=== PATIENT | male | born 1960 | race Caucasian/White ===

== ENCOUNTER → 2017-09-28 11:17 | Outpatient (CLI) | payer MEDICARE, SELFPAY ==
[2017-09-28 12:05] VITALS: PULSE 85; PULSE 87
== END ==
PROVIDERS: Family Provider Family Medicine; PCP Family Medicine; Visit Provider Family Medicine
DX: J44.9 Chronic obstructive pulmonary disease, unspecified (principal)
CPT/HCPCS: 94060; 94640

== ENCOUNTER → 2017-12-03 10:21 | Outpatient (CLI) | payer MEDICARE, SELFPAY ==
--- NOTE | 2017-12-03 10:28 | XR_ITS ---
XR knee RT 3V HISTORY: ITS.REASON: POSTERIOR RT KNEE PAIN ORDERING PHYSICIAN: Catalino Forde MD PATIENT AGE: 57 years COMPARISON: None FINDINGS: No fracture or dislocation. There is increased density in the suprapatellar region suggesting knee joint effusion. There is a small area of subarticular lucency involving the distal aspect of the medial femoral condyle at the knee joint surrounded by small area of sclerosis. The lucency measures approximately 5 mm. This is consistent with an area of osteochondrosis/osteochondral defect. The joint spaces are well-preserved. IMPRESSION: 1. Osteochondrosis dissecans with small osteochondral defect of the medial femoral condyle. 2. Small knee joint effusion
== END ==
PROVIDERS: PCP Family Medicine; Visit Provider Family Medicine
DX: M25.561 Pain in right knee (principal)
CPT/HCPCS: 73562

== ENCOUNTER 2019-04-21 14:00 | Outpatient (RCR) | payer MEDICARE, SELFPAY | END 2019-04-21 14:05 | disposition home or self-care (01) | LOC: PT 14:00 | PROVIDERS: Visit Provider Physician Assistant Surgical | DX: M25.561 Pain in right knee (principal); Z96.651 Presence of right artificial knee joint | CPT/HCPCS: 97010; 97014; 97110; 97140; 97163; G0283 ==

== ENCOUNTER 2020-11-28 02:02 | Emergency (ER) | payer MEDICARE, SELFPAY ==
[2020-11-28] VITALS (7 sets, daily range): BP systolic 132–159; BP diastolic 70–89; PULSE 81–86; RESP 16–18; TEMP 36.8; O2SAT 94–96; BMI 39.9
--- NOTE | 2020-11-28 02:03 | XR_ITS ---
PROCEDURE INFORMATION: Exam: XR Left Knee Exam date and time: 11/28/2020 2:03 AM Age: 60 years old Clinical indication: Injury or trauma; Fall; Blunt trauma; Knee; Left TECHNIQUE: Imaging protocol: XR Left knee. Views: 3 views. COMPARISON: No relevant prior studies available. FINDINGS: Bones/joints: No acute fracture or malalignment. There is a small nondisplaced osteochondral defect in the medial distal femoral condyle. Knee joint space is otherwise unremarkable. Soft tissues: Normal. IMPRESSION: 1. No fracture or malalignment. 2. Small osteochondral defect in the medial distal femoral condyle.
--- NOTE | 2020-11-28 02:03 | XR_ITS ---
PROCEDURE INFORMATION: Exam: XR Left Tibia and Fibula Exam date and time: 11/28/2020 2:03 AM Age: 60 years old Clinical indication: Injury or trauma; Fall; Blunt trauma; Lower leg; Left TECHNIQUE: Imaging protocol: XR Left tibia and fibula. Views: 2 views. COMPARISON: No relevant prior studies available. FINDINGS: Bones/joints: There is a nondisplaced osteochondral defect in the medial distal femoral condyle. Knee joint space is unremarkable. Mildly laterally displaced fracture of the distal fibula. Mild widening of the medial ankle joint space. No displaced tibial fracture. Soft tissues: Soft tissue edema in the foot and ankle. IMPRESSION: Mildly displaced distal fibular fracture with probable medial ankle ligament injury.
--- NOTE | 2020-11-28 02:03 | XR_ITS ---
PROCEDURE INFORMATION: Exam: XR Pelvis Exam date and time: 11/28/2020 2:03 AM Age: 60 years old Clinical indication: Injury or trauma; Fall; Blunt trauma (contusions or hematomas); Bilateral; Pelvic region TECHNIQUE: Imaging protocol: XR pelvis. Views: 1 or 2 view. 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 Normal alignment. No displaced fracture. Degenerative changes in the lumbar spine and prior posterior fusion at L3-L4. Soft tissues: Unremarkable. IMPRESSION: No fracture or malalignment.
--- NOTE | 2020-11-28 02:03 | XR_ITS ---
PROCEDURE INFORMATION: Exam: XR Left Foot Exam date and time: 11/28/2020 2:03 AM Age: 60 years old Clinical indication: Injury or trauma; Fall; Blunt trauma; Foot; Left TECHNIQUE: Imaging protocol: XR Left foot. Views: 3 or more views. COMPARISON: CR XR TIBIA FIBULA LT 2V 11/28/2020 2:29 AM FINDINGS: Bones/joints: Mildly displaced fracture of the distal fibula. There is a nondisplaced fracture of the plantar surface of the base of a metatarsal, only visualized on the lateral view. Soft tissues: Soft tissue swelling at the ankle. IMPRESSION: 1. Mildly displaced distal fibular fracture. 2. Nondisplaced fracture of the plantar base of 1 metatarsal, only visualized on the lateral view. It is unclear which metatarsal base is involved.
--- NOTE | 2020-11-28 02:03 | XR_ITS ---
PROCEDURE INFORMATION: Exam: XR Chest Exam date and time: 11/28/2020 2:03 AM Age: 60 years old Clinical indication: Injury or trauma; Fall; Blunt trauma (contusions or hematomas) TECHNIQUE: Imaging protocol: XR of the chest. Views: 1 view. COMPARISON: CR CXR2V XR chest 2V 08/28/2017 9:09 PM FINDINGS: Lungs: Clear. No consolidation. Pleural spaces: No pleural effusion. No pneumothorax. Heart/Mediastinum: Unremarkable. No cardiomegaly. Bones/joints: Unremarkable. IMPRESSION: No acute findings.
--- NOTE | 2020-11-28 02:04 | XR_ITS ---
PROCEDURE INFORMATION: Exam: XR Left Ankle Exam date and time: 11/28/2020 2:04 AM Age: 60 years old Clinical indication: Injury or trauma; Fall; Blunt trauma; Ankle; Left TECHNIQUE: Imaging protocol: XR Left ankle. Views: 3 or more views. COMPARISON: CR XR KNEE LT 3V 11/28/2020 2:27 AM FINDINGS: Bones/joints: There is an oblique fracture of the distal fibula extending just below the ankle mortise. The distal fibular fragment is displaced 4 mm laterally with widening of the medial ankle mortise. Distal tibia and talar dome are intact. Nondisplaced fracture of the base of the 5th metatarsal. Soft tissues: Soft tissue swelling in the ankle. IMPRESSION: 1. Oblique fracture of the distal fibula with widening of the medial ankle mortise suggesting medial ankle ligament injury. 2. 5th metatarsal base fracture.
--- NOTE | 2020-11-28 02:47 | HMH.EDLOEX ---
ED Disposition Clinical Impression: Ankle fracture Qualifiers: Encounter type: initial encounter Fracture type: closed Laterality: left Qualified Code(s): S82.892A - Other fracture of left lower leg, initial encounter for closed fracture Disposition: Home, Self-Care Condition on Discharge: Good Instructions: DI for Ankle Fracture Additional Instructions: will ask pt to call ortho this am and limited wt bearing Referrals: Provider,Nuris, [Referring] - Hernandez Reno MD [Staff Physician] - - Critical Care Critical Care Time: No Attestation: On 11/28/20, the high probability of a clinically significant, sudden or life threatening deterioration of the following system(s) required my full and direct attention, intervention and personal management. The time I documented below is in addition to time spent performing reported procedures but includes the following listed in this critical care notation. Medical Decision Making - Medical Records Medical records reviewed: Yes: I reviewed the patient's medical records. - Shoaib Inquiry Pt receiving controlled substance: No Vital Signs: 11/28/20 01:53 11/28/20 03:01 11/28/20 03:30 Temperature 98.2 F Temperature Source Oral Pulse Rate 83 84 Pulse Rate [Right] 86 Respiratory Rate 16 Blood Pressure 138/71 141/76 H Blood Pressure [Right Arm] 132/75 Blood Pressure Mean [Right Arm] 94 02 Sat by Pulse Oximetry 96 95 95 11/28/20 04:00 11/28/20 04:30 11/28/20 05:01 Temperature Temperature Source Pulse Rate 85 83 82 Pulse Rate [Right] Respiratory Rate Blood Pressure 138/70 159/89 H 150/87 H Blood Pressure [Right Arm] Blood Pressure Mean [Right Arm] 02 Sat by Pulse Oximetry 94 L 95 96 - Lab Data Lab results reviewed: Yes: I reviewed the patient's lab results. - Radiology Data #1 Image(s): Chest, Pelvis, Knee, Tib/Fib, Ankle, Foot/Toes Image Reviewed: Yes I have reviewed radiologist's interpretation Preliminary Findings: Abnormal (fx seen) - Physician Consults Physician Consulted: shadia Reason -: Pt condition Medical Decision Narrative: will place in splint and refer to dr reno Lower Extremity Injury HPI - General Chief Complaint: Extremity Injury, Lower Stated Complaint: left ankle injury Time Seen by Provider: 11/28/20 02:15 Mode of Arrival: EMS Source of Information: Patient, EMS, Medical Record Limitations: No Limitations Description of Symptoms (Recalled from ER Triage Doc. by RN): pt states stood up and fell landing on lt ankle foot. pt denies LOC pt c/o lt ankle , foot pain - History of Present Illness HPI Narrative: pt with acute injury to lt ankle/foot sec to fall complaint: ankle injury Onset (ago): hour(s) Injury: Left: ankle Type of Injury: eversion Place: home Severity: moderate Context: fall Associated symptoms: unable to bear weight Other symptoms: none - Related Data Home Medications Medication Instructions Recorded Confirmed ALPRAZolam [Xanax 1mg tab] 1 mg PO TID 08/28/17 08/28/17 Aspirin [Aspir 81] 81 mg PO DAILY 08/28/17 08/28/17 Cinnamon Bark [Cinnamon] 1,000 mg PO DAILY 08/28/17 08/28/17 Dapagliflozin Propanediol [Farxiga] 10 mg PO DAILY 08/28/17 08/28/17 Gemfibrozil 600 mg PO BID 08/28/17 08/28/17 Insulin Glargine,Hum.rec.anlog 50 units SQ TID 08/28/17 08/28/17 [Toujeo Solostar] Insulin Lispro [Humalog] 100 unit SQ DAILY 08/28/17 08/28/17 Methadone HCl [Methadone 10mg 10 mg PO QID 08/28/17 08/28/17 Tablet] Pregabalin [Lyrica 150mg Cap] 150 mg PO QID 08/28/17 08/28/17 atenoloL [Atenolol 50mg Tab] 50 mg PO DAILY 08/28/17 08/28/17 tadalafiL [Cialis] 5 mg PO DAILY PRN 08/28/17 08/28/17 Previous Rx's Medication Instructions Recorded Azithromycin [Zithromax 250mg 250 mg PO DIRECTED #6 tab 08/28/17 tab] Benzonatate [Tessalon Perle 100mg 100 mg PO TID #30 cap 08/28/17 Cap] Allergies Allergy/AdvReac Type Severity Reaction Status D
== END 2020-11-28 07:14 | disposition home or self-care (01) ==
PROVIDERS: Emergency Provider Emergency Medicine; PCP Family Medicine
DX: S82.452A Displaced comminuted fracture of shaft of left fibula, initial encounter for closed fracture (principal); S92.355A Nondisplaced fracture of fifth metatarsal bone, left foot, initial encounter for closed fracture; W01.0XXA Fall on same level from slipping, tripping and stumbling without subsequent striking against object, initial encounter; Y92.019 Unspecified place in single-family (private) house as the place of occurrence of the external cause; E11.9 Type 2 diabetes mellitus without complications
CPT/HCPCS: 29515; 71045; 72170; 73562; 73590; 73610; 73630; 99283

== ENCOUNTER → 2020-12-03 14:06 | Outpatient (CLI) | payer MEDICARE, SELFPAY ==
--- NOTE | 2020-12-03 14:10 | XR_ITS ---
PROCEDURE: XR ANKLE LT MIN 3V CLINICAL INDICATION: LT ankle fracture COMPARISON: CR XR ANKLE LT MIN 3V from 11/28/2020 FINDINGS: There is a cast in place stabilizing a nondisplaced distal fibular fracture with good alignment. Ankle mortise is preserved. Also appears to be a nondisplaced posterior distal tibial fracture. IMPRESSION: Good alignment distal fibular and posterior distal tibial fracture Dictated by: Brennon Soria MD 12/03/2020 15:41 Brennon Soria MD in [place] 12/03/2020 15:41
== END ==
PROVIDERS: PCP Family Medicine; Visit Provider Orthopaedic Surgery
DX: S82.892A Other fracture of left lower leg, initial encounter for closed fracture (principal)
CPT/HCPCS: 73610

== ENCOUNTER → 2020-12-13 14:39 | Outpatient (CLI) | payer MEDICARE, SELFPAY ==
--- NOTE | 2020-12-13 14:44 | XR_ITS ---
PROCEDURE: XR ANKLE LT MIN 3V CLINICAL INDICATION: LT ankle fracture COMPARISON: CR XR ANKLE LT MIN 3V from 11/28/2020 CR XR ANKLE LT MIN 3V from 12/03/2020 FINDINGS: There is an overlying cast. There is an oblique distal fibular fracture exiting medially at the level of the ankle joint. There is 4 mm lateral displacement of the distal fracture fragment. The ankle mortise does not appear widened. There is good alignment The joint spaces are well-preserved. No significant degenerative/arthritic changes. No erosive changes evident. Other findings:None. IMPRESSION: Minimally displaced distal fibular fracture with good alignment Dictated by: Brennon Soria MD 12/13/2020 15:02 Brennon Soria MD in [place] 12/13/2020 15:02
== END ==
PROVIDERS: PCP Family Medicine; Visit Provider Orthopaedic Surgery
DX: S82.892A Other fracture of left lower leg, initial encounter for closed fracture (principal)
CPT/HCPCS: 73610

== ENCOUNTER → 2020-12-31 09:46 | Outpatient (CLI) | payer MEDICARE, SELFPAY ==
--- NOTE | 2020-12-31 09:46 | XR_ITS ---
PROCEDURE: XR ANKLE LT MIN 3V CLINICAL INDICATION: left ankle fx; XR OUT OF CAST COMPARISON: CR XR ANKLE LT MIN 3V from 11/28/2020 CR XR ANKLE LT MIN 3V from 12/03/2020 CR XR ANKLE LT MIN 3V from 12/13/2020 FINDINGS: Cast has been removed. There is good alignment of the fracture fragments of the oblique fracture of the distal fibula with no significant displacement. Calcification noted anterior to the lower aspect of the fracture line suggesting callus formation. The ankle mortise appears slightly widened with mild prominence the distal tibiofibular space raising the question of syndesmosis injury. Other findings:None. IMPRESSION: Mild widening of the ankle mortise raising the question of syndesmotic injury. The oblique distal fibular fracture is in good alignment without displacement Dictated by: Brennon Soria MD 12/31/2020 14:20 Brennon Soria MD in [place] 12/31/2020 14:20
--- NOTE | 2020-12-31 09:49 | XR_ITS ---
PROCEDURE: XR DEXA AXIAL SKELETON CLINICAL HISTORY: H/O HEALED FRAGILITY FRACTURE COMPARISON: No exams were available for comparison FINDINGS: The right hip BMD is 0.900 with a T-score of -0.2. The left hip BMD is 0.95 with a T-score of -0.2. The radius 1/3 is 0.710 with a T-score of -2.0. IMPRESSION: This patient is considered osteopenic according to the World Health Organization criteria. Bone density is between 10 and 25 percent below young normal. Fracture risk is moderate. Treatment is advised. Based on these results a follow-up exam is recommended in 2 year. Dictated by: Brennon Soria MD 12/31/2020 14:17 Brennon Soria MD in [place] 12/31/2020 14:17
== END ==
PROVIDERS: PCP Family Medicine; Visit Provider Family Medicine
DX: S82.65XD Nondisplaced fracture of lateral malleolus of left fibula, subsequent encounter for closed fracture with routine healing (principal); M85.89 Other specified disorders of bone density and structure, multiple sites
CPT/HCPCS: 73610; 77080

== ENCOUNTER 2020-12-31 11:33 | Outpatient (RCR) | payer MEDICARE, SELFPAY | END 2020-12-31 12:58 | disposition home or self-care (01) | LOC: PT 11:33 | PROVIDERS: Visit Provider Orthopaedic Surgery | DX: S82.65XD Nondisplaced fracture of lateral malleolus of left fibula, subsequent encounter for closed fracture with routine healing (principal) | CPT/HCPCS: 97760 ==

== ENCOUNTER → 2021-01-22 18:07 | Outpatient (CLI) | payer MEDICARE, SELFPAY ==
--- NOTE | 2021-01-22 18:14 | XR_ITS ---
PROCEDURE INFORMATION: Exam: XR Left Ankle Exam date and time: 01/22/2021 6:14 PM Age: 60 years old Clinical indication: Screening exam; Follow up to left ankle fracture. Patient is wearing an orthopedic boot. Patient states he is not a candidate for surgery due to diabetic complications. TECHNIQUE: Imaging protocol: XR Left ankle. Views: 3 or more views. COMPARISON: CR XR ANKLE LT MIN 3V 12/31/2020 10:41 AM FINDINGS: Bones/joints: Acute, mildly displaced oblique fracture of the distal left fibula, similar appearance to comparison study. Minimal widening of the medial aspect of the tibiotalar joint, raising the possibility of ligamentous injury. Soft tissues: Mild, diffuse ankle soft tissue swelling. IMPRESSION: 1. Mild, diffuse ankle soft tissue swelling. 2. Acute, mildly displaced oblique fracture of the distal left fibula, similar appearance to comparison study. 3. Minimal widening of the medial aspect of the tibiotalar joint, raising the possibility of ligamentous injury.
== END ==
PROVIDERS: PCP Family Medicine; Visit Provider Orthopaedic Surgery
DX: S82.65XD Nondisplaced fracture of lateral malleolus of left fibula, subsequent encounter for closed fracture with routine healing
CPT/HCPCS: 73610

== ENCOUNTER → 2021-02-11 09:45 | Outpatient (CLI) | payer MEDICARE, SELFPAY ==
--- NOTE | 2021-02-11 09:48 | XR_ITS ---
PROCEDURE: XR ANKLE LT MIN 3V CLINICAL INDICATION: LT ankle fracture followup COMPARISON: CR XR ANKLE LT MIN 3V from 01/22/2021 FINDINGS: When compared to the previous study 01/22/2021 there is minimal smudging of the fracture line suggesting early healing. The ankle mortise appears normal. Stable mild soft tissue swelling both medially and laterally. IMPRESSION: Early healing spiral oblique fracture distal fibula Dictated by: Dr. Collin Henry MD 02/11/2021 11:02 Dr. Collin Henry MD in [place] 02/11/2021 11:02
== END ==
PROVIDERS: PCP Family Medicine; Visit Provider Orthopaedic Surgery
DX: S82.892A Other fracture of left lower leg, initial encounter for closed fracture (principal)
CPT/HCPCS: 73610

== ENCOUNTER 2021-03-04 15:00 | Outpatient (RCR) | payer MEDICARE, SELFPAY ==
--- NOTE | 2021-01-27 16:51 | HMH.PTOPEV ---
PT Outpatient Evaluation Rehab PT Outpatient Evaluation Start: 01/27/21 14:17 Freq: Status: Active Protocol: Document 01/27/21 14:17 ASHELYDENAE (Rec: 01/27/21 16:26 KEENANSAVANNAH [id number]) Electronically Signed By Bill Hester PT 01/27/21 14:17 Outpatient Therapy Subjective History Subjective History This is the inital evaluation for Timothy Naima ZHU Walker. Pt is a 60 y/o male referred for a L distal fibular closed fracture. Pt reports that he went to use the bathroom one night when he slipped and fell on his L foot. Pt reports he has significant nueropathy so his balance is not great. Pt reports he heard a loud snap and immediatly felt pain and swelling after. Pt is being treated non-operatively in a short leg cast. Pt was in a hard cast for 4 weeks and then transitioned into a CAMboot the past 4 weeks. Pt states he has used the boot for walking but takes it off when seated. He reports pain on the inside of foot now from boot. Pt uses a SP cane intermitently when he needs it for walking. - note done by Lindsay George, SPT Chief Complaint Pain,Spasms,Stiff,Weakness Symptom Type Ache,Sharp,Stabbing Symptoms Relieved By Rest/Positioning,Brace/Support Symptoms Aggravated By Standing,Physical Activity, Walking Prior Functional Limitations None Current Functional Limitations Housework,Driving,Sleeping, Standing,Recreation Activity, Walking,Balance Symptom Description Intermittent Level of pain today (0-10) 1 Pain scale - at its best (0-10) 0 Pain scale - at its worst (0-10) 5 Ankle/Foot Eval Gait Observation General Gait Pattern Observation Antalgic Gait,Wide Based Gait Assistive Device Ambulation Assistive Device Straight Cane Palpation Tenderness left Ankle/Foot Palpation Findings Tenderness Ankle/Foot Palpation Overall Comment L fibular mal, medial subdeltoid lig Deltoid ligament TTP negative ROM Ankle/Foot Dorsiflexion w/Knee Extended 1 Active Range Motion (degrees)
== END 2021-03-04 15:05 | disposition home or self-care (01) ==
LOC: PT 15:00
PROVIDERS: PCP Family Medicine; Visit Provider Orthopaedic Surgery
DX: S82.65XD Nondisplaced fracture of lateral malleolus of left fibula, subsequent encounter for closed fracture with routine healing (principal)
CPT/HCPCS: 97010; 97110; 97163

== ENCOUNTER 2021-11-30 11:10 | Emergency (ER) | payer MEDICARE, SELFPAY ==
[2021-11-30 11:39] VITALS: BP 150/64; PULSE 74; RESP 16; TEMP 36.8; O2SAT 97; BMI 39.9
--- NOTE | 2021-11-30 11:45 | HMH.EDUTC ---
[facility] [place] Clinical Impression: Cerumen impaction Qualifiers: Laterality: right Qualified Code(s): H61.21 - Impacted cerumen, right ear Disposition: Home, Self-Care Condition on Discharge: Good Instructions: Cerumen Impaction Additional Instructions: Follow up with ENT for further examination and treatment for stopped up ear and Wax impaction\ Return if needed Straight to ER if any life threatening symptoms Referrals: Catalino Forde MD [Primary Care Provider] - As needed William Ontiveros MD [Physician] - Solitario Gallo MD [Physician] - Time of Disposition: 12:20 Medical Decision Making - Shoaib Inquiry Pt receiving controlled substance: No Shoaib was queried for this patient: No Vital Signs: 11/30/21 11:39 Temperature 98.2 F Temperature Source Oral Pulse Rate [Left] 74 Respiratory Rate 16 Blood Pressure [Right Arm] 150/64 H Blood Pressure Mean [Right Arm] 92 02 Sat by Pulse Oximetry 97 [facility] [place] - General Stated complaint: ear pain Time Seen by Provider: 11/30/21 11:45 Mode of Arrival: Ambulatory Source of Information: Patient Limitations: No Limitations Description of Symptoms (Recalled from Triage Doc. by RN): patient comes in with complaints of ringing in right ear for 5 days HEENT Symptoms (Recalled from RN notes): Yes Resp Symptoms (Recalled from RN notes): No Skin Symptoms (Recalled from RN notes): No MS Symptoms (Recalled from RN notes): No Functional Status (Recalled from RN notes): n/a - History of Present Illness Provider Complaint: Patient states that he has been feeling like his right ear stopped up States that he has used ear candles the last couple of days to try to clean out his ear States that he always has ringing in ears but it is worse when he has wax build up Denies pain - Related Data Home Medications Medication Instructions Recorded Confirmed ALPRAZolam [Xanax 1mg tab] 1 mg PO TID 08/28/17 02/11/21 Aspirin [Aspir 81] 81 mg PO DAILY 08/28/17 02/11/21 Cinnamon Bark [Cinnamon] 1,000 mg PO DAILY 08/28/17 02/11/21 Dapagliflozin Propanediol [Farxiga] 10 mg PO DAILY 08/28/17 02/11/21 Gemfibrozil 600 mg PO BID 08/28/17 02/11/21 Insulin Glargine,Hum.rec.anlog 50 units SQ TID 08/28/17 02/11/21 [Tiffanie Perry] Methadone HCl [Methadone 10mg 10 mg PO QID 08/28/17 02/11/21 Tablet] Pregabalin [Lyrica 150mg Cap] 150 mg PO QID 08/28/17 02/11/21 atenoloL [Atenolol 50mg Tab] 50 mg PO DAILY 08/28/17 02/11/21 insulin glargine U-300 conc 300 146 unit SQ ml 11/29/20 02/11/21 unit/mL (3 mL) subcutaneous pen Allergies Allergy/AdvReac Type Severity Reaction Status Date / Time erythromycin base Allergy Verified 11/30/21 11:42 naproxen Allergy Verified 11/30/21 11:42 sitagliptin [From Januvia] Allergy Verified 11/30/21 11:42 - Worker's Comp Is this a Worker's Comp case?: No [facility] History - Hepatitis A Screen Attestation statement:: This patient has been screened for Hepatitis A risk factors. I have reviewed the patient's past medical history: Yes Medical History: Reports:: Cancer, Diabetes Mellitus Type 2 Denies:: Diabetes Mellitus Type 1, MRSA Laterality Cases: Bilateral: Tonsillectomy Other Surgeries: Yes: Cholecystectomy, Hernia Repair Amputation: No Comment: right knee replacement. 5 back surgeries. catarac. tumor removed right breast - Social History Smoking Status: Current every day smoker # Packs/Day (cigarettes): 1 Alcohol Intake: never Occupational Status: disabled Family Hx:: No significant family history ROS Obtained: Yes All systems reviewed & no additional complaints, Yes Systems reviewed as appropriate & no additional complaints - Constitutional Constitutional: Reports system reviewed and no additional complaints, except as docu, Denies body ache, Denies chills, Denies fever(s) - ENT Ears, Nose, Mouth, and Throat: Reports system reviewed and no additional complaints, except as docu, Denies otalgia, Reports other (rep
[2021-11-30 12:26] VITALS: BP 150/64; PULSE 74; RESP 16; TEMP 36.8
== END 2021-11-30 12:27 | disposition home or self-care (01) ==
PROVIDERS: Emergency Provider Nurse Practitioner; PCP Family Medicine
DX: H61.21 Impacted cerumen, right ear (principal)
CPT/HCPCS: 99212; G0463

== ENCOUNTER 2024-04-20 12:26 | Emergency (ER) | payer MEDICARE, SELFPAY ==
[2024-04-20 12:29] VITALS: BP 148/93; PULSE 82; RESP 20; TEMP 36.8; O2SAT 95; BMI 34.9
[2024-04-20 12:50] VITALS: BP 148/93; PULSE 82; O2SAT 94
--- NOTE | 2024-04-20 13:07 | ED_ITS ---
<Statement entered by Dariel Griggs MD - 04/21/24 15:50> I was consulted by the JJ, and we discussed the complexity of the problems being addressed. I approved the treatment and management plan for this patient's care in the emergency department, thus performing a substantive portion of the medical decision making. Dariel Griggs MD, JOE, FACEP Discharge Plan Disposition Patient Disposition: Home, Self-Care Prescriptions Prescriptions: New amoxicillin-pot clavulanate 875-125 mg tablet 1 tab PO BID Qty: 20 0RF pjvcvuoj-nwnojeizl-VS 3.5-10,000-1 mg/mL-unit/mL-% drops,suspension 4 drp otic (ear) Q8H 5 Days Qty: 10 0RF mupirocin 2 % ointment 1 applic topical BID Qty: 15 0RF No Action Toujeo Max U-300 SoloStar 300 unit/mL (3 mL) insulin pen 146 unit SQ ofloxacin 0.3 % drops 1 drp OP BID atorvastatin 10 mg tablet 10 mg PO DAILY clotrimazole-betamethasone 1-0.05 % cream 1 applic TP BID Qty: 15 1RF ofloxacin 0.3 % drops 4 drp OT BID 14 Days Qty: 5 1RF alprazolam 1 MG tablet 1 mg PO TID methadone 10 MG tablet 10 mg PO QID aspirin 81 MG tablet,delayed release (DR/EC) 81 mg PO DAILY gemfibrozil 600 MG tablet 600 mg PO BID atenolol 50 MG tablet 50 mg PO DAILY pregabalin 150 MG capsule 150 mg PO QID dapagliflozin propanediol 10 MG tablet 10 mg PO DAILY insulin glargine U-300 conc 300 UNIT/ML insulin pen 50 units SQ TID Rx Instructions: 50 units before breakfast and lunch, 55units before supper Referrals Follow up/Referrals: Catalino Forde MD [Primary Care Provider] - See instructions Activity Restrictions/Add. Instructions Additional Instructions/Restrictions: As we discussed please keep your scheduled follow-up with ear nose and throat next week. I have sent prescriptions into your pharmacy. Take the oral antibiotic till it is gone. Use the eardrops and topical ointment as directed. The ointment does only on the outside of your ear. Follow-up with your PCP for no improvement or worsening signs or symptoms as needed. Clinical Impressions Clinical Impression: Impetigo Print Language Print Language: Indonesian Discharge ED Provider: Dariel Griggs General Adult HPI General Stated complaint: pain/drainage in ears, knot L jaw, fluid in neck Time Seen by Provider: 04/20/24 13:07 Mode of Arrival: Ambulatory Source of Information: Patient Limitations: No Limitations Description of Symptoms (Recalled from ER Triage Doc. by RN): pt is here bc his pcp office sent him and his ent appt is on 04/25 and no one can get him in any ssooner, pt has been on 3 rounds of antibx since february for middle ear infections now he has swollen knots underneath his ear and jawline, pt has not has any steroids bc he is diabetic History of Present Illness HPI narrative: Patient presents for persistent drainage from his left ear swollen and painful neck for 1 month. Patient was previously diagnosed with otitis media and put on oral antibiotics approximately a month ago according to him. However he states that my ear has been draining since then. He also reports that he has some pain below this area on the left side of his neck. He denies any problems with chewing or swallowing. He does not report any loss of hearing. Denies any fever chills hemoptysis hematochezia melena nausea vomiting diarrhea. Related Data Home Medications ?Medication ?Instructions ?Recorded ?Confirmed alprazolam 1 mg tablet 1 mg PO TID Anxiety 08/28/17 12/09/21 aspirin 81 mg tablet,delayed 81 mg PO DAILY heart health 08/28/17 12/09/21 release atenolol 50 mg tablet 50 mg PO DAILY htn 08/28/17 12/09/21 dapagliflozin propanediol 10 mg 10 mg PO DAILY . 08/28/17 12/09/21 tablet gemfibrozil 600 mg tablet 600 mg PO BID . 08/28/17 12/09/21 insulin glargine U-300 conc 300 50 units SQ TID Diabetes 08/28/17 12/09/21 unit/mL (1.5 mL) subcutaneous pen methadone 10 mg tablet 10 mg PO QID Pain 08/28/17 12/09/21 pregabalin 150 mg capsule 150 mg PO QID Depression 08/28/17 12/09/21 insulin glargine U-300 conc 300 146 unit SQ 08/13/21 08/23/22 unit/mL (3 mL) subcutaneous pen (Toujeo Max U-300 SoloStar) atorvastatin 10 mg tablet 10 mg PO DAILY 12/09/21 12/09/21 ofloxacin 0.3 % eye drops 1 drp ophthalmic (eye) BID 12/09/21 12/09/21 Previous Rx's ?Medication ?Instructions ?Recorded clotrimazole-betamethasone 1 1 applic topical BID #15 grams 12/09/21 %-0.05 % topical cream ofloxacin 0.3 % ear drops 4 drp otic (ear) BID 14 days #5 mL 12/09/21 amoxicillin 875 mg-potassium 1 tab PO BID #20 tabs 04/20/24 clavulanate 125 mg tablet mupirocin 2 % topical ointment 1 applic topical BID #15 grams 04/20/24 yyzjyffl-ggtdlmjqs-wzivazjss 3.5 4 drp otic (ear) Q8H 5 days #10 mL 04/20/24 mg-10,000 unit/mL-1 % ear drops,susp Allergies Allergy/AdvReac Type Severity Reaction Status Date / Time erythromycin base Allergy Verified 12/09/21 11:22 naproxen Allergy Verified 12/09/21 11:22 sitagliptin (From Januvia) Allergy Verified 12/09/21 11:22 [facility] Disclaimer: The information contained in this section may have been updated after the patient was seen, as this information can be updated by other users. Social History Smoking Status: Current every day smoker alcohol intake: never current occupational status: disabled Travel in the last 8 weeks: None Have you lived/traveled outside US in past 30 days?: No Contact w/someone who lives/traveled outside US past 30 days?: No Exposure to someone with infectious disease in past 14 days?: No Do you have a fever (greater than 100.4 F or 38 C)?: No Have you tested positive for COVID-19: No Exposed to someone with COVID-19 in past 14 days?: No Do you have a sore throat?: No Do you have a cough?: No Do you have any weakness?: No Do you have any diarrhea?: No Are you experiencing any unusual bleeding?: No Do you have any muscle aches/pain?: No Do you have any abdominal pain?: No Are you experiencing loss of taste or smell?: No Other Medical History Have you received the Flu Vaccine for this season: Yes Have you received the Pneumonia Vaccine: Yes ROS Obtained: Yes Systems reviewed as appropriate & no additional complaints except as documented Physical Exam General General appearance: alert and in no apparent distress Respiratory Respiratory exam: Present normal lung sounds bilaterally Cardiovascular Cardiovascular exam: Present regular rate Neurological Exam Neurological exam: Present alert and oriented X3 Medical Decision Making Medical Records Medical records reviewed: Yes I reviewed the patient's medical records. Screening: Per USPSTF and CDC recommendations, given the prevalence of disease in our region, it is our hospital?s policy to screen for HIV and viral Hepatitis for all patients aged 18 and over and those with ongoing risk factors. Shoaib Inquiry Pt receiving controlled substance: No Vital Signs: 04/20/24 12:29 04/20/24 12:50 04/20/24 13:08 Temperature 98.2 F Temperature Source Oral Pulse Rate 82 77 Pulse Rate [Right Radial] 82 Respiratory Rate 20 Blood Pressure 148/93 H 124/71 Blood Pressure [Right Arm] 148/93 H Blood Pressure Mean [Right Arm] 111 02 Sat by Pulse Oximetry 95 94 L 94 L Oxygen Delivery Method Room Air 04/20/24 13:15 04/20/24 13:30 04/20/24 13:48 Temperature 98.2 F Temperature Source Pulse Rate 72 75 80 Pulse Rate [Right Radial] Respiratory Rate 20 Blood Pressure 114/72 114/66 140/79 Blood Pressure [Right Arm] Blood Pressure Mean [Right Arm] 02 Sat by Pulse Oximetry 89 L 91 L Oxygen Delivery Method Room Air Medical Decision Narrative: In summary patient is a 63-year-old male who presents to the emergency department for evaluation of left ear pain and drainage. Patient is hemodynamically stable upon arrival, febrile. Physical exam reveals that patient has erythema and honey crusted scab at the opening of the external auditory canal with slight erythema of the opening. However the tympanic itself is normal not erythematous clear with good cone of light. The external auditory canal is swollen but no bleeding or abrasions noted.. Differential diagnosis includes otitis externa versus impetigo. Patient has palpable left-sided lymph nodes in cervical chains. Patient has no signs of Ludewig's angina has normal bite and occlusion no fluctuance or induration noted. Initial workup was considered however patient has no red flags to indicate deeper systemic infection.. Initial interventions were considered including Tylenol Motrin however patient is afebrile and has minimal pain. Given this patient is appropriate for discharge with oral antibiotics for the cellulitis, topical eardrops and and mupirocin for the impetigo and otitis externa and referral to ENT for follow-up and management. Critical Care Critical Care Time Critical Care Time: No
[2024-04-20 13:08] VITALS: BP 124/71; PULSE 77; O2SAT 94
[2024-04-20 13:15] VITALS: BP 114/72; PULSE 72; O2SAT 89
[2024-04-20 13:30] VITALS: BP 114/66; PULSE 75; O2SAT 91
[2024-04-20 13:48] VITALS: BP 140/79; PULSE 80; RESP 20; TEMP 36.8; O2SAT 98
== END 2024-04-20 13:48 | disposition home or self-care (01) ==
PROVIDERS: Emergency Provider Student in an Organized Health Care Education/Training Program; PCP Family Medicine
DX: L01.00 Impetigo, unspecified (principal); R22.1 Localized swelling, mass and lump, neck; H92.03 Otalgia, bilateral
CPT/HCPCS: 99283

== ENCOUNTER 2024-09-14 12:16 | Outpatient (CLI) | payer MEDICARE, SELFPAY ==
--- NOTE | 2024-09-14 12:21 | XR_ITS ---
FINAL REPORT CLINICAL HISTORY: BRONCHITIS. coughing and congestion x1week. FINDINGS: CHEST 2 VIEWS PA AND LATERAL The heart is normal in size. The mediastinum is unremarkable. The lungs are clear. There is no pneumothorax. IMPRESSION: No acute process. Reviewed, Interpreted and Dictated by Joey Sanchez MD Transcribed by Roxana Barnett Authenticated and [facility]
== END 2024-09-14 23:59 | disposition home or self-care (01) ==
LOC: RAD 12:17
PROVIDERS: PCP Family Medicine; Visit Provider Nurse Practitioner Family
DX: J40 Bronchitis, not specified as acute or chronic (principal)
CPT/HCPCS: 71046

== ENCOUNTER 2025-03-09 11:18 | Outpatient (CLI) | payer MEDICARE, SELFPAY ==
--- OUTSIDE RECORDS SUMMARY | 2025-03-09 11:21 | XMS_ITS | Encounter Summary ---
Author Organization [facility] yste Address [address] [place] [address] Care Team Providers Care Still Tender Name Role Phone Catalino Forde MD Primary Care Provider + Encounter Details Date Type Department Care Team (Late st Contact Info) Description 10/08/2024 Results Follow-Up [facility] [address] [place] [address] Catalino Forde MD [address] [place] [address] Social History Tobacco Use Types Packs/Day Years Used Date Smoking Tobacco: Every Day Cigarettes 0.5 54.4 Started: 12/18/1970 Smokeless Tobacco: Never Comments:Still smoke down to half a pack. Never smoke more than a pack a day. Alcohol Use Standard Drinks/Week Comments Not Currently 0 (1 standard drink = 0.6 oz pure alcohol) Haven t drink over 40 years and that was beer. PHQ-2 Answer Date Recorded Retired PHQ-9: Brief Depression Severity Measure Score 0 04/01/2023 PHQ-2 Answer Date Recorded Patient Health Questionnaire-2 Score 0 10/02/2024 Sex and Gender Information Value Date Recorded Sex Assigned at Male 09/25/2024 11:37 AM EDT Legal Sex Male 10:46 AM EDT Gender Identity Not on file Sexual Orientation Straight 09/25/2024 11 :37 AM EDT documented as of this encounter Plan of Treatment Upcoming Encounters Date Type Department Care Team (Late st Contact Info) Description 04/05/2025 2:15 PM EST Office Visit [facility] [address] [place] [phone] Catalino Forde MD [address] [place] [address] documented as of this encounter Visit Diagnoses Not on filedocumented in this encounter Care Teams Still Tender Relationship Specialty Start Date End Date Catalino Forde MD [address] [place] [address] PCP - General Family Medicine 08/13/21 documented as of this encounter
--- OUTSIDE RECORDS SUMMARY | 2025-03-09 11:21 | XMS_ITS | Clinical Summary ---
Author Organization Healthcare Address [address] [place] [address] Care Team Providers Care Oracle Software Engineer Name Role Phone Catalino Forde MD Primary Care Provider [phone] Family History Medical History Relation Name Comments Coronary artery disease Father Relation Name Status Comments Father Social History Tobacco Use Types Packs/Day Years Used Date Smoking Tobacco: Every Day Sex and Gender Information Value Date Recorded Sex Assigned at Not on file Legal Sex Male 7:33 PM EDT Gender Identity Not on file Sexual Orientation Not on file Last Filed Vital Signs Vital Sign Reading Time Taken Comments Blood Pressure 160/90 02/22/2019 10:45 AM EST Pulse 75 02/22/2019 10:45 AM EST Temperature - - Respiratory Rate - - Oxygen Saturation - - Inhaled Oxygen Concentration - - Weight 119 kg (262 lb 5.6 oz) 02/22/2019 10:45 A M EST Height 175.3 cm (5' 9 ) 02/22/2019 10:45 AM EST Body Mass Index 38.74 02/22/2019 10:45 AM EST Plan of Treatment Health Maintenance Due Date Last Done Comments Dental Oral Exam 1958 Dental Prophylaxis 1958 Dental X-Ray: Bitewings 1958 Dental X-Ray: Full Mouth 1958 [facility]-Depression Screening 1958 [facility]-Infant/Child/Adol SDOH Screenings 1958 [facility]- SDOH Screenings 1976 [facility]-Adult SDOH Screenings 1976 [facility]-DTaP,Tdap,and Td Vaccine s (1 - Tdap) 1977 CT Colonography 11/17/2003 Colonoscopy 11/17/2003 FIT-DNA 11/17/2003 FIT 11/17/2003 FOBT 11/17/2003 Sigmoidoscopy 11/17/2003 [facility]-Colorectal Cancer Screening 11/17/2003 [facility]-Pneumococcal Vaccine: 50 + Years (1 of 1 - PCV) 2008 [facility]-Zoster Vaccines (1 of 2) 2008 OOU-QRHCQ-26 Vaccine (1 - 20 25-26 season) 2024 [facility]-Influenza Vaccine (#1) 2024 [facility]-RSV Vaccine: 60+ Years o r (1 - 1-dose 75+ series) 2033 HPV Vaccines Aged Out No longer eligi ble based on patient's age to complete this topic [facility]-HIB Vaccines Aged Out No longer e ligible based on patient's age to complete this topic [facility]-Hepatitis A Vaccines Aged Out No longer eligible based on patient's age to complete this topic [facility]-IPV Vaccines Aged Out No longer e ligible based on patient's age to complete this topic [facility]-Rotavirus Vaccines Aged Out No lo nger eligible based on patient's age to complete this topic Insurance CIG DENTAL CLAIMS Care Teams Oracle Software Engineer Relationship Specialty Start Date [place] [address] PCP - General 08/30/20
--- OUTSIDE RECORDS SUMMARY | 2025-03-09 11:21 | XMS_ITS | Encounter Summary ---
Author Organization [facility] yste Address [address] [place] [address] Care Team Providers Care Crepe Box Tender Name Role Phone Catalino Rios MD Primary Care Provider + Reason for Visit * Reason Onset Date Comments REQUEST TO BE SQUEEZED IN FOR AN APPOINTMENT 05/2024 Encounter Details Date Type Department Care Team (Late st Contact Info) Description 12/19/2024 Telephone [facility] [address] [place] [address] Catalino Rios MD [address] [place] [address] REQUEST TO BE SQUEEZED IN FOR AN APPOINTMENT Social History Tobacco Use Types Packs/Day Years [...] AM EDT documented as of this encounter Miscellaneous Notes * Telephone Encounter - Otilia Alicia - 12/19/2024 3:28 PM EDT PATIENT HAS CALLED AND STATED HE HAS BEEN EXPERIENCING EXTREME PAIN FROM THE NECK DOWN SHOULDER ANDDOWN HIS BACK. PATIENT STATES HE ALSO HAS BEEN HAVING UNCONTROLLED POPPING AND CRACKING IN HIS NECKWHENEVER HE TURNS HIS HEAD. FIRST AVAILABLE APPOINTMENT WITH PCP WAS FOR 12/26/24. PATIENT DOES NOTWANT TO WAIT UNTIL THEN TO BE SEEN BY PCP AND IS REQUESTING IF DR. RIOS CAN SQUEEZE HIM IN [place] SEEN. PATIENT IS REQUESTING A CALL BACK EITHER WAY TO LET HIM KNOW IF HE CAN BE SQUEEZED IN. CALL BACK NUMBER IS [phone] documented in this encounter Plan of Treatment Upcoming Encounters Date Type Department Care Team (Late st Contact Info) Description 04/05/2025 2:15 PM EST Office Visit [facility] [address] [place] [address] Catalino Rios MD [address] [place] [address] documented as of this encounter Visit Diagnoses Not on filedocumented in this encounter Care Teams Crepe Box Tender Relationship Specialty Start Date End Date Catalino Rios MD [address] [place] [address] PCP - General Family Medicine 08/13/21 documented as of this encounter
--- OUTSIDE RECORDS SUMMARY | 2025-03-09 11:21 | XMS_ITS | Encounter Summary ---
Author Organization [facility] yste Address [address] [place] [address] Care Team Providers Care Wet Wheeler Name Role Phone Catalino Forde MD Primary Care Provider + Reason for Visit * Reason Onset Date Comments Med Refill 06/19/2022 Encounter Details Date Type Department Care Team (Late st Contact Info) Description 06/19/2022 Refill [facility] [address] [place] [address] Catalino Forde MD [address] [place] [address] Chronic anxiety Social History Tobacco Use Types Packs/Day Years Used Date Smoking Tobacco: Light Smoker Cigarettes 0.5 54.2 Started: 12/18/1970 Smokeless Tobacco: Never Comments:Still smoke down to half a pack. Never amoke motr than a pack a day. Alcohol Use Standard Drinks/Week Comments Not Currently 0 (1 standard drink = 0.6 oz pure alcohol) Haven t drink over 30 years and that was beer. PHQ-2 Answer Date Recorded Retired PHQ-9: Brief Depression Severity Measure Score 0 12/31/2021 Sex and Gender Information Value Date Recorded Sex Assigned at Male 09/25/2024 11:37 AM EDT Legal Sex Male 10:46 AM EDT Gender Identity Not on file Sexual Orientation Straight 09/25/2024 11 :37 AM EDT documented as of this encounter Plan of Treatment Upcoming Encounters Date Type Department Care Team (Late st Contact Info) Description 04/05/2025 2:15 PM EST Office Visit [facility] [address] [place] [phone] Catalino Forde MD [address] [place] [address] documented as of this encounter Visit Diagnoses Diagnosis Chronic anxiety Anxiety state, unspecified documented in this encounter Care Teams Wet Wheeler Relationship Specialty Start Date End Date Catalino Forde MD [address] [place] [address] PCP - General Family Medicine 08/13/21 documented as of this encounter
--- OUTSIDE RECORDS SUMMARY | 2025-03-09 11:21 | XMS_ITS | Encounter Summary ---
Author Organization [facility] yste Address [address] [place] [address] Care Team Providers Care Traveling Nurse Name Role Phone Catalino Forde MD Primary Care Provider + Encounter Details Date Type Department Care Team (Late st Contact Info) Description 12/22/2024 Results Follow-Up [facility] [address] [place] [address] Catalino Forde MD [address] [place] [address] Social History Tobacco Use Types [...] Description 04/05/2025 2:15 PM EST Office Visit [facility] [address] [place] [phone] Catalino Forde MD [address] [place] [address] documented as of this encounter Visit Diagnoses Not on filedocumented in this encounter Care Teams Traveling Nurse Relationship Specialty Start Date End Date Catalino Forde MD [address] [place] [address] PCP - General Family Medicine 08/13/21 documented as of this encounter
--- OUTSIDE RECORDS SUMMARY | 2025-03-09 11:21 | XMS_ITS | Encounter Summary ---
[facility] Address [address] [place] [address] Care Team Providers Care Target Protection Specialist Name Role Phone Catalino Forde MD Primary Care Provider + Reason for Visit * Reason Onset Date Comments Med Refill 07/05/2024 Encounter Details Date Type Department Care Team (Late st Contact Info) Description 07/05/2024 Refill [facility] [address] [place] [address] Catalino Forde MD [address] [place] [address] Neuropathic pain Social History Tobacco Use Types Packs/Day Years Used Date Smoking Tobacco: Every Day Cigarettes 0.5 54.3 Started: 12/18/1970 Smokeless Tobacco: Never Comments:Still smoke [...] Date Recorded Patient Health Questionnaire-2 Score 0 04/03/2024 Sex and Gender Information Value Date Recorded Sex Assigned at Male 09/25/2024 11:37 AM EDT Legal Sex Male 10:46 AM EDT Gender Identity Not on file Sexual Orientation Straight 09/25/2024 11 :37 AM EDT documented as of this encounter Miscellaneous Notes * Telephone Encounter - Aylin Velez MA - 07/06/2024 10:11 AM EDT Rx Refill Note Requested Prescriptions Pending Prescriptions Disp Refills methadone (DOLOPHINE) 10 MG tablet 120 tablet 0 Sig: TAKE 1 TABLET BY MOUTH EVERY SIX HOURS NEEDED FOR MODERATE PAIN MAY CAUSE DROWSINESS, Last office visit with prescribing clinician: 04/03/2024 Last telemedicine visit with prescribing clinician: Visit date not found Next office visit with prescribing clinician: 10/02/2024 Would you like a call back once the refill request has been completed: [] Yes [] No If the office needs to give you a call back, can they leave a voicemail: [] Yes [] No Aylin Velez MA 07/06/24, 10:11 EDT documented in this encounter Plan of Treatment Upcoming Encounters Date Type Department Care Team (Late st Contact Info) Description 04/05/2025 2:15 PM EST Office Visit [facility] [address] [facility] [place] [place] [address] Catalino Forde MD [address] [place] [address] documented as of this encounter Visit Diagnoses Diagnosis Neuropathic pain documented in this encounter Care Teams Target Protection Specialist Relationship Specialty Start Date End Date Catalino Forde MD [address] [place] [address] PCP - General Family Medicine 08/13/21 documented as of this encounter
--- OUTSIDE RECORDS SUMMARY | 2025-03-09 11:22 | XMS_ITS | Clinical Summary ---
[facility] Address [address] [place] [address] Care Team Providers Care Spray Maker Name Role Phone Catalino Forde MD Primary Care Provider + Allergies Active Allergy Reactions Criticality Noted Date Comments Erythromycin Diarrhea 09/29/2021 Sitagliptin Itching 09/29/2021 Naproxen Itching 09/29/2021 Medications aspirin 81 MG EC tablet Take 1 tablet by mouth Daily. Active Polyethylene Glycol 3350 (MIRALAX PO) Take by mouth As Needed. Active ALPRAZolam (XANAX) 1 MG tabletIndications :Chronic anxiety Take 1 tablet by mouth 3 (Three) Times a Day As Needed for Anxiety. 90 tablet 5 025 Active atenolol (TENORMIN) 50 MG tabletIndications :Primary hypertension Take 1 tablet by mouth 2 (Two) Times a Day. 60 tablet 5 025 Active dapagliflozin Propanediol (Farxiga) 10 MG tabletIndications :Type 2 diabetes mellitus with hyperglycemia, with long-term current use of insulin Take 10 mg by mouth Daily. 30 tablet 5 025 Active Insulin Glargine, 2 Unit Dial, (Toujeo Max SoloStar) 300 UNIT/ML solution pen-injector injectionIndicati ons:Type 2 diabetes mellitus with hyperglycemia, with long-term current use of insulin Inject 100 Units under the skin into the appropriate area as directed Daily. 36 mL 2 025 Active pregabalin (LYRICA) 150 MG capsuleIndication s:Chronic pain syndrome,Neuropat hic pain Take 2 capsules by mouth 2 (Two) Times a Day. 120 capsule 5 025 Active cetirizine (zyrTEC) 10 MG tabletIndications :Non-seasonal allergic rhinitis due to pollen Take 1 tablet by mouth Daily. 90 tablet 3 025 Active atorvastatin (LIPITOR) 10 MG tablet TAKE 1 TABLET BY MOUTH ONCE DAILY 30 tablet 10 025 Active fluocinolone acetonide (DERMOTIC) 0.01 % oil otic oilIndications:Ch ronic eczematous otitis externa of both ears Apply 2 drops to each ear twice daily 20 mL 025 Active Continuous Glucose Sensor (FreeStyle Any 3 Sensor) miscIndications:T ype 2 diabetes mellitus with hyperglycemia, with long-term current use of insulin Use 1 each Every 14 (Fourteen) Days. 2 each 2 025 Active gemfibrozil (LOPID) 600 MG tabletIndications :Mixed hyperlipidemia TAKE 1 TABLET BY MOUTH 2 (TWO) TIMES A DAY. 60 tablet 4 025 Active Semaglutide, 2 MG/DOSE, (Ozempic, 2 MG/DOSE,) 8 MG/3ML solution pen-injectorIndic ations:Type 2 diabetes mellitus with hyperglycemia, with long-term current use of insulin Inject 2 mg under the skin into the appropriate area as directed 1 (One) Time Per Week. 3 mL 6 025 Active Insulin Pen Needle (Unifine Pentips) 31G X 8 MM miscIndications:T ype 2 diabetes mellitus with hyperglycemia, with long-term current use of insulin Inject TID to QID prn / Dx: E11.65 200 each 8 025 Active Insulin Lispro, 1 Unit Dial, (HumaLOG KwikPen) 100 UNIT/ML solution pen-injectorIndic ations:Type 2 diabetes mellitus with hyperglycemia, with long-term current use of insulin Inject 25 Units under the skin into the appropriate area as directed 3 (Three) Times a Day Before Meals. 30 mL 5 025 Active methadone (DOLOPHINE) 10 MG tabletIndications :Chronic pain syndrome,Neuropat hic pain TAKE ONE (1) TABLET BY MOUTH EVERY SIX HOURS NEEDED FOR MODERATE PAIN MAY CAUSE DROWSINESS, 120 tablet 11/20/2 025 Active Unifine Pentips 31G X 8 MM miscIndications:T ype 2 diabetes mellitus with hyperglycemia, with long-term current use of insulin USE 4 TIMES A DAY DIRECTED 200 each 8 024 2024 Discontinued(R eorder) Insulin Lispro, 1 Unit Dial, (HumaLOG KwikPen) 100 UNIT/ML solution pen-injectorIndic ations:Type 2 diabetes mellitus with hyperglycemia, with long-term current use of insulin Inject 25 Units under the skin into the appropriate area as directed 3 (Three) Times a Day Before Meals. 30 mL 5 025 2024 Discontinued(R eorder) methadone (DOLOPHINE) 10 MG tabletIndications :Chronic pain syndrome,Neuropat hic pain TAKE 1 TABLET BY MOUTH EVERY SIX HOURS NEEDED FOR MODERATE PAIN MAY CAUSE DROWSINESS, 120 tablet 025 2024 Discontinued Active Problems Problem Noted Date Diagnosed Date Primary hypertension 10/15/2023 Assessment & Plan (10/02/2024 2:18 PM EDT): Hypertension is stable and controlled Continue current treatment regimen. Dietary sodium restriction. Blood pressure will be reassessed in 6 months. Assessment & Plan (04/03/2024 2:49 PM EST): Orders: atenolol (TENORMIN) 50 MG tablet; Take 1 tablet by mouth 2 (Two) Times a Day. Cigarette smoker 04/01/2023 Class 1 obesity due to exces s calories with serious comorbidity and body mass index (BMI) of 33.0 to 33.9 in adult 04/02/2022 Assessment & Plan (04/02/2022 3:03 PM EST): Patient's (Body mass index is 41.48 kg/m .) indicates that they are morbidly obese (BMI > 40 or > 35 with obesity - related health condition) with health conditions that include diabetes mellitus and dyslipidemias . Weight is unchanged. BMI is is above average; BMI management plan is completed. We discussed portion control and pharmacologic options including Ozempic. Lumbar degenerative disc disease 03/02/2022 Type 2 diabetes mellitus wit h hyperglycemia, with long-term current use of insulin 09/29/2021 Assessment & Plan (10/02/2024 2:18 PM EDT): Diabetes is stable. 90% of blood sugars are within range. He experiences hypoglycemia approximately once every other week. He is taking medicines as prescribed. Eye exam is due in the fall. Surveillance labs were drawn today. Continue use of CGM. Continue current medication dosing Assessment & Plan (04/03/2024 2:49 PM EST): Orders: POC Glycosylated Hemoglobin (Hb A1C) dapagliflozin Propanediol (Farxiga) 10 MG tablet; Take 10 mg by mouth Daily. Insulin Glargine, 2 Unit Dial, (Toujeo Max SoloStar) 300 UNIT/ML solution pen-injector injection; Inject 100 Units under the skin into the appropriate area as directed Daily. Semaglutide, 2 MG/DOSE, (Ozempic, 2 MG/DOSE,) 8 MG/3ML solution pen-injector; Inject 2 mg under the skin into the appropriate area as directed 1 (One) Time Per Week. Assessment & Plan (04/03/2024 2:49 PM EST): Orders: POC Glycosylated Hemoglobin (Hb A1C) dapagliflozin Propanediol (Farxiga) 10 MG tablet; Take 10 mg by mouth Daily. Insulin Glargine, 2 Unit Dial, (Toujeo Max SoloStar) 300 UNIT/ML solution pen-injector injection; Inject 100 Units under the skin into the appropriate area as directed Daily. Semaglutide, 2 MG/DOSE, (Ozempic, 2 MG/DOSE,) 8 MG/3ML solution pen-injector; Inject 2 mg under the skin into the appropriate area as directed 1 (One) Time Per Week. Assessment & Plan (04/02/2022 3:04 PM EST): Diabetes mellitus is not at goal. If affordable the addition of GLP-1 agonist would benefit both hyperglycemia and patient's weight and would likely allow for reduction in insulin. Ozempic starter pen given in office with instructions on how to use. Emphasized the need to contact the office if he experiences hypoglycemia Type 2 diabetes mellitus wit h diabetic neuropathy, with long-term current use of insulin 09/29/2021 Assessment & Plan (07/07/2022 11:05 AM EDT): Diabetes is unchanged. Discussed foot care. Reminded to get yearly retinal exam. Medication changes per orders. Diabetes will be reassessed in 3 months. Increase Ozempic to 1 mg weekly Assessment & Plan (04/02/2022 3:04 PM EST): Neuropathy is stable. Pregabalin refilled Chronic pain syndrome 09/29/2021 Assessment & Plan (10/02/2024 2:20 PM EDT): Pain syndrome from combination of diabetic peripheral neuropathy and previous spinal arthritis with chronic lumbar radiculopathy. Patient uses pregabalin and methadone as prescribed. He reports pain is stable and use of medication allows for ADLs. He will continue his current medication regimen. Urine drug screening was ordered today Chronic prescription opiate use 09/29/2021 Chronic anxiety 09/29/2021 buttermaker helper prescription benzodiazepine use 2021 Mixed hyperlipidemia 09/29/2021 Assessment & Plan (10/02/2024 2:19 PM EDT): Mixedhyperlipidemia is stable. He continues on statin and gemfibrozil. He takes medicines as prescribed. Surveillance labs were ordered today and he will continue his current medications Assessment & Plan (04/03/2024 2:49 PM EST): Orders: gemfibrozil (LOPID) 600 MG tablet; Take 1 tablet by mouth 2 (Two) Times a Day. Lumbar radiculopathy 09/29/2021 Encounters Date Type Department Care Team Description 03/07/2025 Refill [facility] [address] [address] Catalino Forde MD Chronic pain syndrome; Neuropathic pain 03/07/2025 Refill [facility] [address] [address] Catalino Forde MD Chronic pain syndrome; Neuropathic pain 02/08/2025 Refill [facility] [address] [place] [address] Catalino Forde MD Type 2 diabetes mellitus with hyperglycemia, with long-term current use of insulin 02/08/2025 Refill [facility] [address] [place] [address] Catalino Forde MD Type 2 diabetes mellitus with hyperglycemia, with long-term current use of insulin 02/06/2025 Refill [facility] [address] [place] [address] Catalino Forde MD Type 2 diabetes mellitus with hyperglycemia, with long-term current use of insulin 02/01/2025 Refill [facility] [address] [place] [address] Catalino Forde MD Chronic pain syndrome; Neuropathic pain 02/01/2025 Refill [facility] [address] [place] [address] Catalino Forde MD Chronic pain syndrome; Neuropathic pain; Type 2 diabetes mellitus with hyperglycemia, with long-term current use of insulin 01/03/2025 Refill [facility] [address] [place] [address] Catalino Forde MD Chronic pain syndrome; Neuropathic pain 12/29/2024 Refill [facility] [address] [place] [address] Catalino Forde MD Mixed hyperlipidemia 12/28/2024 [facility] [address] [place] [address] Catalino Forde MD REQUEST FOR DETAILED ORDER FOR ANY 3 PLUS 12/22/2024 Results Follow-Up [facility] [address] [place] [address] Catalino Forde MD 12/21/2024 3:23 PM EDT - 12/21/2024 11:59 PM EDT Hospital Encounter [facility] [place] [address] [address] Catalino Forde MD Posterior neck pain Discharge Disposition: Home or Self Care 12/21/2024 2:45 PM EDT Office Visit [facility] [address] [place] [address] Catalino Forde MD Posterior neck pain (Primary Dx); Chronic eczematous otitis externa of both ears; Hypersomnolence; Witnessed episode of apnea; Loud snoring 12/21/2024 Travel 12/19/2024 Telephone [facility] [address] [place] [address] Catalino Forde MD REQUEST TO BE SQUEEZED IN FOR AN APPOINTMENT from Last 3 Months Immunizations Immunization Administration Dates Next Due COVID-19 (MODERNA) 1st,2nd,3rd Dose Monovalent 1 ,12/20/2020 Family History Medical History Relation Name Comments Arthritis Father Timothy Walker Sr. COPD Father Timothy Walker Sr. Diabetes Father Timothy Walker Sr. Hearing loss Father Timothy Walker Sr. Had to w ear hearing aids Heart disease Father Timothy Walker Sr. Open He art surgery age 81 Hyperlipidemia Father Timothy Walker Sr. Hypertension Father Timothy Walker Sr. Cancer Maternal Aunt [place] delgado Cancer Operated 07/1994- 11/1994 Cancer Maternal Grandfather Long Bottom Shaggy Stoma ch Cancer. Anxiety disorder Mother Yaneth Walker Depression Mother Yaneth HicksDana Walker Mom got chemic al poisoned at work Heart disease Mother Yaneth Walker Hyperlipidemia Mother Yaneth aWlker Aphib Hypertension Mother Yaneth Walker Aphib Diabetes Paternal Grandfather Arjun Del Angel fr om it. Relation Name Status Comments Father Timothy Walker Sr. Maternal Aunt [place] Ruggiero Brain Cancer Maternal Grandfather Jose Francisco Coon Mother Yaneth Walker Paternal Grandfather Arjun Del Angel Social History Tobacco Use Types Packs/Day Years Used Date Smoking Tobacco: Every Day Cigarettes 0.5 54.4 Started: 12/18/1970 Smokeless Tobacco: Never Tobacco Cessation:Ready to Q uit: Not Asked; Counseling Given: Not Answered Comments:Still smoke down to half a pack. [...] Orientation Straight 09/25/2024 11 :37 AM EDT Last Filed Vital Signs Vital Sign Reading Time Taken Comments Blood Pressure 120/68 12/21/2024 2:41 PM EDT Pulse 76 12/21/2024 2:41 PM EDT Temperature 36.7 C (98 F) 12/21/2024 2:41 PM EDT Respiratory Rate 20 12/21/2024 2:41 PM EDT Oxygen Saturation 96% 12/21/2024 2:41 PM EDT Inhaled Oxygen Concentration - - Weight 102 kg (224 lb 12.8 oz) 12/21/2024 2:41 P M EDT Height 175.3 cm (5' 9.02 ) 12/21/2024 2:41 PM ED T Body Mass Index 33.18 12/21/2024 2:41 PM EDT Plan of Treatment Upcoming Encounters Date Type Department Care Team (Late st Contact Info) Description 04/05/2025 2:15 PM EST Office Visit [facility] [address] [place] [address] Catalino Forde MD [address] [place] [address] Health Maintenance Due Date Last Done Comments Pneumococcal Vaccine 50+ (1 of 2 - PCV) 1977 TDAP/TD VACCINES (1 - Tdap) 1977 COLON CANCER SCREENING 5 YEA R SIGMOIDOSCOPY 11/17/2003 COLONOSCOPY 11/17/2003 CT COLONOGRAPHY 11/17/2003 FECAL OCCULT BLOOD TEST 11/17/2003 FIT Testing (1 year) 11/17/2003 LUNG CANCER SCREENING 2008 ZOSTER VACCINE (1 of 2) 2008 COVID-19 Vaccine (3 - Modern a risk series) 02/19/2021 01/22/2021, 12/20/2020 HEPATITIS C SCREENING 08/12/2021 COLOGUARD 07/18/2022 07/19/2019 COLORECTAL CANCER SCREENING 07/18/2022 AAA SCREEN ONCE 11/17/2023 INFLUENZA VACCINE 11/17/2024 ANNUAL WELLNESS VISIT 04/03/2025 04/03/2024 , 04/01/2023, 04/01/2023 HEMOGLOBIN A1C 04/03/2025 10/02/2024, 03/19, 10/15/2023, Additional history exists DIABETIC FOOT EXAM 10/02/2025 10/02/2024, 0 10/02/2024, 10/02/2024, Additional history exists LIPID PANEL 10/02/2025 10/02/2024, 09/18, 07/07/2022, Additional history exists URINE MICROALBUMIN-CREATININ E RATIO (uACR) 10/02/2025 10/02/2024 DIABETIC EYE EXAM 12/06/2025 12/06/2024, , 10/21/2022, Additional history exists Procedures Procedure Name Priority Date/Time Associated Diagnosis Comments PULSE OXIMETRY, OVERNIGHT Routine 12/26/2024 Hypersomnolence Witnessed episode of apnea Loud snoring XR SPINE CERVICAL 2 OR 3 VW Routine 12/21/2024 3:28 PM EDT Posterior neck pain SCANNED - EYE EXAM 12/06/2024 POC ALBUMIN/CREATININE RATIO Routine 10/02/2024 2:52 PM EDT Type 2 diabetes mellitus with hyperglycemia, with long-term current use of insulin HEMOGLOBIN A1C Routine 10/02/2024 2:30 PM EDT Type 2 diabetes mellitus with hyperglycemia, with long-term current use of insulin LIPID PANEL Routine 10/02/2024 2:30 PM EDT Mixed hyperlipidemia from Last 3 Months or Most Recently Relevant to Health Maintenance Results * Overnight Sleep Oximetry Study (12/26/2024) Catalino Forde MD RESPIRATORY CARE ORDERAB LES Final Result * XR Spine Cervical 2 or 3 View (12/21/2024 3:28 PM EDT) Anatomical Region Laterality Modality Spine, C-spine N/A Radiographic Fidelina ging 12/21/2024 3:48 PM EDT Impressions 12/21/2024 3:49 PM EDT Impression: Degenerative disc disease in the lower cervical spine. Electronically Signed: Yung Arthur MD 12/21/2024 3:49 PM EDT Workstation ID: [id number] Narrative 12/21/2024 3:49 PM EDT XR SPINE CERVICAL 2 OR 3 VW Date of Exam: 12/21/2024 3:23 PM EDT Indication: posterior neck pain x 6 weeks. Comparison: None available. Findings: Multilevel degenerative disc changes are identified at C5-6 and C6-7 most significantly with disc base height loss and osteophytosis. Facet joints are unremarkable. No prevertebral soft tissue swelling is identified. C1-2 relationship is unremarkable. No aggressive appearing lytic or sclerotic bone lesions. Procedure Note Yung Arthur MD - 12/21/2024 XR SPINE CERVICAL 2 OR 3 VW Date of Exam: 12/21/2024 3:23 PM EDT Indication: posterior neck pain x 6 weeks. Comparison: None available. Findings: Multilevel degenerative disc changes are identified at C5-6 and C6-7 mostsignificantly with disc base height loss and osteophytosis. Facet jointsare unremarkable. No prevertebral soft tissue swelling is identified. C1- 2relationship is unremarkable. No aggressive appearing lytic or sclerotic bone lesions. IMPRESSION: Impression: Degenerative disc disease in the lower cervical spine. Electronically Signed: Yung Arthur MD 12/21/2024 3:49 PM EDT Workstation ID: [id number] Catalino Forde MD IMG DIAGNOSTIC IMAGING O RDERABLES Final Result * EYE EXAM SCANNED (12/06/2024) Anatomical Region Laterality Modality Other [facility] CHART REVIEW TABS Final Re sult * POC Albumin/Creatinine Ratio Urine (10/02/2024 2:52 PM EDT) POC ALBUMIN, URINE 10 mg/L POC CREATININE, URINE 50 mg/dL POC Urine Albumin Creatinine Ratio < 30 mg/g <30 Lot Number [id number] Expiration Date 08/16/2025 Urine 10/02/2024 2:52 PM EDT Catalino Forde MD POINT OF CARE TEST ORDER CHERISE Final Result * (ABNORMAL) Hemoglobin A1c (10/02/2024 2:30 PM EDT) Hemoglobin A1C 7.7(H) 4.8 - 5.6 % [facility] Comment: Prediabetes: 5.7 - 6.4 Diabetes: >6.4 Glycemic control for adults with diabetes: <7.0 Blood 10/02/2024 2:30 PM EDT 10/02/2024 Narrative [facility] (AMBULATORY) - 10/07/2024 2:09 PM EDT Performed at: [facility] [id number] Communication Assistant: Martinez Koo PhD, Phone: [phone] Patient Fasting: Y Catalino Forde MD LAB BLOOD ORDERABLES Fin al Result Performing Organization Address City/[facility]/ZIP Co de Phone Number [facility] (AMBULATORY) [address] [place] [address], [place] [phone] [facility] [address] [place] [address], * (ABNORMAL) Lipid Panel (10/02/2024 2:30 PM EDT) [facility] Total Cholesterol 134 100 - 199 mg/dL [facility] Triglycerides 166(H) 0 - 149 mg/dL [facility] HDL Cholesterol 29(L) >39 mg/dL [facility] VLDL Cholesterol Eric 29 5 - 40 mg/dL [facility] LDL Chol Calc (NIH) 76 0 - 99 mg/dL [facility] Blood 10/02/2024 2:30 PM EDT 10/02/2024 Narrative [facility] ([facility]UL[facility]ORY) - 10/07/2024 2:09 PM EDT Performed at: 02 - [facility] [address] [place] [id number] Communication Assistant: Martinez Koo PhD, Phone: [phone] Patient Fasting: Y Catalino Forde MD LAB BLOOD ORDERABLES Fin al Result Performing Organization Address [facility] Co de Phone Number [facility] (AMBULATORY) [address] [place] [address], [place] [phone] [facility] [address] [place] [address], [place] [phone] from Last 3 Months or Most Recently Relevant to Health Maintenance Insurance MEDICARE A & B [facility] [employer] Care Teams Spray Maker Relationship Specialty Start Date End Date Catalino Forde MD [address] [place] [address] PCP - General Family Medicine 08/13/21
--- OUTSIDE RECORDS SUMMARY | 2025-03-09 11:22 | XMS_ITS | Encounter Summary ---
[facility] Organization [facility] Address [address] [place] [address] Care Team Providers Care Electrical Timing Device Calibrator Name Role Phone Catalino Forde MD Primary Care Provider + Reason for Visit * Reason Onset Date Comments Med Refill 03/15/2023 Encounter Details Date Type Department Care Team (Late st Contact Info) Description 03/15/2023 Refill [facility] [address] [place] [address] Catalino Forde MD [address] [place] [address] Neuropathic pain Social History Tobacco Use Types Packs/Day Years Used Date Smoking Tobacco: Every Day Cigarettes 0.5 54.2 Started: 12/18/1970 Smokeless Tobacco: Never Comments:Still smoke down to half a pack. Never smoke more than a pack a day. Alcohol Use Standard Drinks/Week Comments Not Currently 0 (1 standard drink = 0.6 oz pure alcohol) Haven t drink over 30 years and that was beer. PHQ-2 Answer Date Recorded Retired PHQ-9: Brief Depression Severity Measure Score 0 07/07/2022 Sex and Gender Information Value Date Recorded Sex Assigned at Male 09/25/2024 11:37 AM EDT Legal Sex Male 10:46 AM EDT Gender Identity Not on file Sexual Orientation Straight 09/25/2024 11 :37 AM EDT documented as of this encounter Plan of Treatment Upcoming Encounters Date Type Department Care Team (Late st Contact Info) Description 04/05/2025 2:15 PM EST Office Visit [facility] [address] [place] [address] Catalino Forde MD [address] [place] [address] documented as of this encounter Visit Diagnoses Diagnosis Neuropathic pain documented in this encounter Care Teams Electrical Timing Device Calibrator Relationship Specialty Start Date End Date Catalino Forde MD [address] [place] [address] PCP - General Family Medicine 08/13/21 documented as of this encounter
--- OUTSIDE RECORDS SUMMARY | 2025-03-09 11:22 | XMS_ITS | Encounter Summary ---
Author Organization [facility] Address [address] [place] [address] Care Team Providers Care Historical Interpreter Name Role Phone Catalino Forde MD Primary Care Provider + Reason for Visit * Reason Comments Med Refill Encounter Details Date Type Department Care Team (Late st Contact Info) Description 02/01/2025 Refill [facility] [address] [place] [address] Catalino Forde MD [address] [place] [address] Chronic pain syndrome; Neuropathic pain; Type 2 diabetes mellitus with hyperglycemia, with long-term current use of insulin Social History Tobacco Use Types Packs/Day Years [...] Description 04/05/2025 2:15 PM EST Office Visit [facility] [address] [place] [address] Catalino Forde MD [address] [place] [address] documented as of this encounter Visit Diagnoses Diagnosis Chronic pain syndrome Neuropathic pain Type 2 diabetes mellitus with hyperglycemia, with long-term current use of insulin documented in this encounter Care Teams Historical Interpreter Relationship Specialty Start Date End Date Catalino Forde MD [address] [place] [address] PCP - General Family Medicine 08/13/21 documented as of this encounter
--- OUTSIDE RECORDS SUMMARY | 2025-03-09 11:22 | XMS_ITS | Encounter Summary ---
[facility] Address [address] [place] [address] Care Team Providers Care Medical Stenographer Name Role Phone Catalino Forde MD Primary Care Provider + Reason for Visit * Reason Onset Date Comments Med Refill 02/08/2025 Encounter Details Date Type Department Care Team (Late st Contact Info) Description 02/08/2025 Refill [facility] [address] [place] [address] Catalino Forde MD [address] [place] [address] Type 2 diabetes mellitus with hyperglycemia, with [...] Description 04/05/2025 2:15 PM EST Office Visit [facility] [address] [place] [address] Catalino Forde MD [address] [place] [address] documented as of this encounter Visit Diagnoses Diagnosis Type 2 diabetes mellitus with hyperglycemia, with long-term current use of insulin documented in this encounter Care Teams Medical Stenographer Relationship Specialty Start Date End Date Catalino Forde MD [address] [place] [address] PCP - General Family Medicine 08/13/21 documented as of this encounter
--- OUTSIDE RECORDS SUMMARY | 2025-03-09 11:22 | XMS_ITS | Encounter Summary ---
[facility] Address [address] [place] [address] Care Team Providers Care Ticket Counter Name Role Phone Catalino Forde MD Primary Care Provider + Reason for Visit * Reason Comments Med Refill Encounter Details Date Type Department Care Team (Late st Contact Info) Description 03/07/2025 Refill [facility] [address] [place] [address] Catalino Forde MD [address] [place] [address] Chronic pain syndrome; Neuropathic pain Social History Tobacco Use Types [...] Description 04/05/2025 2:15 PM EST Office Visit [facility] [address] [place] [phone] Catalino Forde MD [address] [place] [address] documented as of this encounter Visit Diagnoses Diagnosis Chronic pain syndrome Neuropathic pain documented in this encounter Care Teams Ticket Counter Relationship Specialty Start Date End Date Catalino Fored MD [address] [place] [address] PCP - General Family Medicine 08/13/21 documented as of this encounter
--- OUTSIDE RECORDS SUMMARY | 2025-03-09 11:22 | XMS_ITS | Encounter Summary ---
Author Organization [facility] Address [address] [place] [address] Care Team Providers Care Production Internship Name Role Phone Catalino Forde MD Primary Care Provider + Reason for Visit * Reason Onset Date Comments Med Refill 03/07/2025 Encounter Details Date Type Department Care Team (Late st Contact Info) Description 03/07/2025 Refill [facility] [address] [place] [address] Catalino Forde MD [address] [place] [address] Chronic pain syndrome; Neuropathic pain [...] Description 04/05/2025 2:15 PM EST Office Visit [facility] [address] [place] [address] Catalino Forde MD [address] [place] [address] documented as of this encounter Visit Diagnoses Diagnosis Chronic pain syndrome Neuropathic pain documented in this encounter Care Teams Production Internship Relationship Specialty Start Date End Date Catalino Forde MD [address] [place] [address] PCP - General Family Medicine 08/13/21 documented as of this encounter
--- OUTSIDE RECORDS SUMMARY | 2025-03-09 11:22 | XMS_ITS | Encounter Summary ---
[facility] Address [address] [place] [address] Care Team Providers Care Road Hogger Operator Name Role Phone Catalino Forde MD Primary Care Provider + Reason for Visit * Reason Comments Med Refill Encounter Details Date Type Department Care Team (Late st Contact Info) Description 12/04/[address] [facility] [address] [place] [address] Catalino Forde MD [address] [place] [address] Chronic pain syndrome; Neuropathic pain [...] Description 04/05/2025 2:15 PM EST Office Visit [facility] [address] [phone] Catalino Forde MD [address] [place] [address] documented as of this encounter Visit Diagnoses Diagnosis Chronic pain syndrome Neuropathic pain documented in this encounter Care Teams Road Hogger Operator Relationship Specialty Start Date End Date Catalino Forde MD [address] [place] [address] PCP - General Family Medicine 08/13/21 documented as of this encounter
--- OUTSIDE RECORDS SUMMARY | 2025-03-09 11:22 | XMS_ITS | Encounter Summary ---
[facility] Address [address] [place] [address] Care Team Providers Care Inspector Pawnshop Detail Name Role Phone Catalino Forde MD Primary Care Provider + Reason for Visit * Reason Onset Date Comments Med Refill 02/01/2025 Encounter Details Date Type Department Care Team (Late st Contact Info) Description 02/01/2025 Refill [facility] [address] [place] [address] Catalino Forde MD [address] [place] [address] Chronic pain syndrome; Neuropathic pain [...] Description 04/05/2025 2:15 PM EST Office Visit [facility] [address] [place] [address] Catalino Forde MD [address] [place] [address] documented as of this encounter Visit Diagnoses Diagnosis Chronic pain syndrome Neuropathic pain documented in this encounter Care Teams Inspector Pawnshop Detail Relationship Specialty Start Date End Date Catalino Forde MD [address] [place] [address] PCP - General Family Medicine 08/13/21 documented as of this encounter
--- OUTSIDE RECORDS SUMMARY | 2025-03-09 11:22 | XMS_ITS | Encounter Summary ---
[facility] Address [address] [place] [address] Care Team Providers Care International Travel Consultant Name Role Phone Catalino Forde MD Primary Care Provider + Reason for Visit * Reason Comments Med Refill Encounter Details Date Type Department Care Team (Late st Contact Info) Description 08/10/2023 Refill [facility] [address] [place] [address] Catalino Forde MD [address] [place] [address] Neuropathic pain Social History Tobacco [...] Score 0 04/01/2023 PHQ-2 Answer Date Recorded Retired PHQ-9: Brief Depression Severity Measure Score 0 04/01/2023 Sex and Gender Information Value Date Recorded Sex Assigned at Male 09/25/2024 11:37 AM EDT Legal Sex Male 10:46 AM EDT Gender Identity Not on file Sexual Orientation Straight 09/25/2024 11 :37 AM EDT documented as of this encounter Miscellaneous Notes * Telephone Encounter - Aylin Velez MA - 08/11/2023 10:30 AM EDT Rx Refill Note Requested Prescriptions Pending Prescriptions Disp Refills methadone (DOLOPHINE) 10 MG tablet [Pharmacy Med Name: METHADONE 10MG] 120 tablet 0 Sig: TAKE 1 TABLET BY MOUTH EVERY SIX HOURS NEEDED FOR MODERATE PAIN MAY CAUSE DROWSINESS Last office visit with prescribing clinician: 04/01/2023 Last telemedicine visit with prescribing clinician: Visit date not found Next office visit with prescribing clinician: 10/01/2023 Would you like a call back once the refill request has been completed: [] Yes [] No If the office needs to give you a call back, can they leave a voicemail: [] Yes [] No Aylin Velez MA 08/11/23, 10:30 EDT documented in this encounter Plan of Treatment Upcoming Encounters Date Type Department Care Team (Late st Contact Info) Description 04/05/2025 2:15 PM EST Office Visit [facility] [address] [place] [address] Catalino Forde MD [address] [place] [address] documented as of this encounter Visit Diagnoses Diagnosis Neuropathic pain documented in this encounter Care Teams International Travel Consultant Relationship Specialty Start Date End Date Catalino Forde MD [address] [place] [address] PCP - General Family Medicine 08/13/21 documented as of this encounter
--- OUTSIDE RECORDS SUMMARY | 2025-03-09 11:22 | XMS_ITS | Encounter Summary ---
Author Organization [facility] Address [address] [place] [address] Care Team Providers Care Upstream Biomanufacturing Technician Name Role Phone Catalino Forde MD Primary Care Provider + Reason for Visit * Reason Onset Date Comments Med Refill 04/07/2022 Encounter Details Date Type Department Care Team (Late st Contact Info) Description 04/07/2022 Refill [facility] [address] [place] [address] Catalino Forde MD [address] [place] [address] Social History Tobacco Use Types [facility] [address] [place] [phone] Catalino Forde MD [address] [place] [address] documented as of this encounter Visit Diagnoses Not on filedocumented in this encounter Care Teams Upstream Biomanufacturing Technician Relationship Specialty Start Date End Date Catalino Forde MD [address] [place] [address] PCP - General Family Medicine 08/13/21 documented as of this encounter
--- OUTSIDE RECORDS SUMMARY | 2025-03-09 11:22 | XMS_ITS | Encounter Summary ---
[facility] Address [address] [place] [address] Care Team Providers Care Vice President Of Academic Affairs Name Role Phone Catalino Forde MD Primary Care Provider + Reason for Visit * Reason Onset Date Comments Med Refill 02/06/2025 Encounter Details Date Type Department Care Team (Late st Contact Info) Description 02/06/[address] [facility] [address] [place] [address] Catalino Forde MD [address] [place] [address] Type 2 diabetes mellitus with [...] PM EST Office Visit [facility] [address] [place] [phone] Catalino Forde MD [address] [place] [address] documented as of this encounter Visit Diagnoses Diagnosis Type 2 diabetes mellitus with hyperglycemia, with long-term current use of insulin documented in this encounter Care Teams Vice President Of Academic Affairs Relationship Specialty Start Date End Date Catalino Forde MD [address] [place] [address] PCP - General Family Medicine 08/13/21 documented as of this encounter
--- OUTSIDE RECORDS SUMMARY | 2025-03-09 11:22 | XMS_ITS | Encounter Summary ---
[facility] [address] [place] [address] Care Team Providers Care Pile Driver Operator Helper Name Role Phone Catalino Forde MD Primary Care Provider + Reason for Visit * Reason Comments Med Refill Encounter Details Date Type Department Care Team (Late st Contact Info) Description 02/08/2025 Refill [facility] [address] [place] [address] Catalino Forde MD [address] [place] [address] Type 2 diabetes mellitus with [...] Description 04/05/2025 2:15 PM EST Office Visit [facility] [address] [place] [address] Catalino Forde MD [address] [place] [address] documented as of this encounter Visit Diagnoses Diagnosis Type 2 diabetes mellitus with hyperglycemia, with long-term current use of insulin documented in this encounter Care Teams Pile Driver Operator Helper Relationship Specialty Start Date End Date Catalino Forde MD [address] [place] [address] PCP - General Family Medicine 08/13/21 documented as of this encounter
--- NOTE | 2025-03-09 11:23 | XR_ITS ---
FINAL REPORT CLINICAL HISTORY: PAIN fall COMPARISON: None FINDINGS: CERVICAL SPINE 5 views were obtained. There is no acute fracture or malalignment. There is mild disc space narrowing at C3-4. Moderate narrowing is noted at C5-6 and C6-7. There is loss of the normal cervical lordosis. Facets are properly aligned. Neural foramen are adequately patent. IMPRESSION: No acute bony abnormality. Loss of the normal cervical lordosis. Reviewed, Interpreted and Dictated by Joey Sanchez MD Transcribed by Grace Little Authenticated and [facility]
--- NOTE | 2025-03-09 11:23 | XR_ITS ---
FINAL REPORT CLINICAL HISTORY: PAIN fall COMPARISON: None FINDINGS: LEFT SHOULDER 3 views of the left shoulder were obtained. There is no acute fracture or dislocation. Visualized joint spaces are normally aligned. Soft tissues are unremarkable. IMPRESSION: No acute bony abnormality. Reviewed, Interpreted and Dictated by Joey Sanchez MD Transcribed by Grace Little Authenticated and [facility]
--- NOTE | 2025-03-09 11:23 | XR_ITS ---
FINAL REPORT CLINICAL HISTORY: PAIN fall COMPARISON: None FINDINGS: 2 views of the left forearm were obtained. There is no acute fracture or dislocation. The joints are intact. There are no soft tissue abnormalities. IMPRESSION: No acute process. Reviewed, Interpreted and Dictated by Joey Sanchez MD Transcribed by Grace Little Authenticated and [facility]
== END 2025-03-09 23:59 | disposition home or self-care (01) ==
LOC: RAD 11:20
PROVIDERS: PCP Family Medicine; Visit Provider Nurse Practitioner Family
DX: M50.30 Other cervical disc degeneration, unspecified cervical region (principal); M79.632 Pain in left forearm; W19.XXXA Unspecified fall, initial encounter
CPT/HCPCS: 72050; 73030; 73090